=== PATIENT | female | born 1940 | race Caucasian/White ===

== ENCOUNTER → 2019-02-04 | Outpatient (CLI) | payer MEDICARE ==
--- NOTE | 2019-02-05 23:07 | Diagnostic Imaging Report ---
Parathyroid Scan with SPECT Reason for exam: 78 F with hyperparathyroidism (E21.0) Radiopharmaceutical: Tc-99m sestamibi 27 mCi After intravenous administration of the radiopharmaceutical, immediate and 2-hour planar images of the neck and upper chest were obtained. Tomographic images of the neck and upper chest were obtained following the initial planar images. Focal increased tracer activity is seen in the upper pole of the left thyroid lobe on the initial planar images. This focus is identified immediately posterior to the upper pole of the left thyroid lobe on the tomographic images. On the delayed planar images, tracer in the thyroid washes out nearly completely but the focal accumulation of tracer at the upper pole of the left thyroid lobe persists. No other focal abnormalities are identified. Impression: Single enlarged hypermetabolic parathyroid gland is identified immediately posterior to the upper pole of the left thyroid lobe. Signed by: Dr. Delmis Alamo M.D. on 02/05/2019 11:04 PM
== END ==
LOC: NM 13:02
PROVIDERS: ATTEND Internal Medicine Medical Oncology
DX: E21.5 Disorder of parathyroid gland, unspecified (principal)
CPT/HCPCS: 78071; A9500

== ENCOUNTER 2019-02-22 18:42 | Inpatient (IN) | payer MEDICARE ==
[~2019-02-22] VITALS: Ht 154.9 cm; Wt 90.0 kg
--- OUTSIDE RECORDS SUMMARY | 2019-02-22 18:44 | XMS REPORT ---
[facility] Address Unknown Phone Unavailable Care Team Providers Care Wool Mixer Name Role Phone ANTON BERRY Unavailable Unavailable Payers Payer Name Policy Type Policy Number Effective Date Expiration Date Problems This patient has no known problems. Allergies, Adverse Reactions, Alerts Allergy Name Allergy Type Status Severity Reaction(s) Onset Date Inactive Date Treating Clinician Comments Penicillins DA Active U 2016-06-20 00:00:00 Sulfa (Sulfonamide Antibiotics) DA Active SV 2016-06-20 00:00:00 codeine DA Active U 2016-06-20 00:00:00 ciprofloxacin DA Active SV 2016-06-20 00:00:00 Medications This patient has no known medications. Results Test Description Test Time Test Comments Text Results Atomic Results Result Comments PARATHYROID IMAGING W SPECT 2019-02-05 22:57:00 [place] [address] Patient Name: TU GUZMAN MR #: [id number] : 1940 Age/Sex: 78/F Req #: [id number] Adm Physician: Ordered by: ANTON BERRY MD Report #: [id number] Location: [place] Room/Bed: Procedure: [id number] NM/PARATHYROID IMAGING W SPECT Exam Date: 02/04/19 Exam Time: 1315 REPORT STATUS: Signed Parathyroid Scan with SPECT Reason for exam: 78 F with hyperparathyroidism (E21.0) Radiopharmaceutical: Tc-99m sestamibi 27 mCi After intravenous administration of the radiopharmaceutical, immediate and 2-hour planar images of the neck and upper chest were obtained. Tomographic images of the neck and upper chest were obtained following the initial planar images. Focal increased tracer activity is seen in the u pper pole of the left thyroid lobe on the initial planar images. This focus is identified immediately posterior to the upper pole of the left thyroid lobe on the tomographic images. On the delayed planar images, tracer in the thyroid washes out nearly completely but the focal accumulation of tracer at the upper pole of the left thyroid lobe persists. No other focal abnormalities are identified. Impression: Single enlarged hypermetabolic parathyroid gland is identified immediately posterior to the upper pole of the left thyroid lobe. Signed by: Dr. Trace Alamo M.D. on 11:04 PM Dictated By: TRACE ALAMO MD 03 Transcribed By: SADIE on 02/05/192303 COPY TO: ANTON BERRY MD
[2019-02-22 20:04] LABS: BASOPHILS % 0.4 % (0.0-1.0); EOSINOPHILS # (AUTO) 0.1 (0.0-0.4); EOSINOPHILS % 2.2 % (0.0-6.0); HEMATOCRIT 35.3 % (34.2-44.1); HEMOGLOBIN 12.2 g/dL (12.0-16.0); LYMPHOCYTES # (AUTO) 0.3 (1.0-3.2); LYMPHOCYTES % 11.6 % (18.0-39.1); MEAN CORPUSCULAR HGB CONC 34.6 g/dL (31-35); MEAN CORPUSCULAR VOLUME 86.9 fL (81-99); MONOCYTES # (AUTO) 0.2 (0.2-0.8); MONOCYTES % 7.9 % (4.4-11.3); NEUTROPHILS # (AUTO) 2.1 (2.1-6.9); NEUTROPHILS % 77.5 % (38.7-80.0); RED BLOOD COUNT 4.06 x10e6/uL (3.6-5.1); RED CELL DISTRIBUTION WIDTH 14.6 % (11.7-14.4)
[2019-02-22 20:05] LABS: PLATELET COUNT 32 x10e3/uL (140-360)
[2019-02-22 20:11] LABS: BLOOD UREA NITROGEN 19 mg/dL (7-26); CARBON DIOXIDE 22 mmol/L (22-29); CHLORIDE 103 mmol/L (98-107); EST GLOMERULAR FILTRATION RATE > 60 ML/MIN (60-); SODIUM 131 mmol/L (136-145)
[2019-02-22 20:12] LABS: ALANINE AMINOTRANSFERASE 14 IU/L (0-55); ALBUMIN/GLOBULIN RATIO 0.8 (0.8-2.0); ALKALINE PHOSPHATASE 117 IU/L (40-150); BUN/CREATININE RATIO 24 (6-25); CALCIUM 11.1 mg/dL (8.4-10.2); GLUCOSE 114 mg/dL (74-118)
[2019-02-22] MEDS ORDERED: VANCOMYCIN 1GM/NS 250 ML 250 ML IV SCH (20:30)
[2019-02-22] MEDS ORDERED: MORPHINE SULFATE 2 MG/ML SYR 1ML IV PRN (20:30)
[2019-02-22] MEDS: VANCOMYCIN 1GM/NS 250 ML 250 ML IV SCH (20:52)
[2019-02-22] MEDS ORDERED: MORPHINE SULFATE INJ 4 MG/ML INJ 1ML IV PRN (21:00)
[2019-02-22] MEDS ORDERED: PANTOPRAZOLE SO40 MG PO (21:08)
[2019-02-22] MEDS ORDERED: ZOLOFT50 MG PO (21:08)
[2019-02-22] MEDS ORDERED: POTASSIUM CHLO10 ME1 PO (21:08)
[2019-02-22] MEDS ORDERED: POTASSIUM CHLORIDE 20 MEQ TAB CR PO ONE ×3 (21:15→23:30)
[2019-02-22 21:20] VITALS: BP 129/63
[2019-02-22 21:37] VITALS: BP 129/63
[2019-02-23] VITALS (8 sets, daily range): BP systolic 92–122; BP diastolic 44–64
[2019-02-23 05:43] LABS: BASOPHILS % 0.7 % (0.0-1.0); EOSINOPHILS # (AUTO) 0.1 (0.0-0.4); EOSINOPHILS % 3.3 % (0.0-6.0); HEMATOCRIT 29.7 % (34.2-44.1); HEMOGLOBIN 10.4 g/dL (12.0-16.0); LYMPHOCYTES # (AUTO) 0.3 (1.0-3.2); LYMPHOCYTES % 20.9 % (18.0-39.1); MEAN CORPUSCULAR HEMOGLOBIN 30.4 pg (28-32); MEAN CORPUSCULAR VOLUME 86.8 fL (81-99); MONOCYTES # (AUTO) 0.2 (0.2-0.8); MONOCYTES % 10.5 % (4.4-11.3); NEUTROPHILS % 64.6 % (38.7-80.0); RED BLOOD COUNT 3.42 x10e6/uL (3.6-5.1); RED CELL DISTRIBUTION WIDTH 14.7 % (11.7-14.4)
[2019-02-23 05:46] LABS: PLATELET COUNT 26 x10e3/uL (140-360)
[2019-02-23 06:09] LABS: ALANINE AMINOTRANSFERASE 11 IU/L (0-55); ALBUMIN 2.3 g/dL (3.5-5.0); ALBUMIN/GLOBULIN RATIO 0.9 (0.8-2.0); ALKALINE PHOSPHATASE 91 IU/L (40-150); ANION GAP 6.3 mmol/L (8-16); BLOOD UREA NITROGEN 16 mg/dL (7-26); BUN/CREATININE RATIO 23 (6-25); CALCIUM 10.6 mg/dL (8.4-10.2); CARBON DIOXIDE 25 mmol/L (22-29); CHLORIDE 110 mmol/L (98-107); EST GLOMERULAR FILTRATION RATE > 60 ML/MIN (60-); GLUCOSE 105 mg/dL (74-118); POTASSIUM 4.3 mmol/L (3.5-5.1); SODIUM 137 mmol/L (136-145)
[2019-02-23 06:57] LABS: EOSINOPHILS % (MANUAL) 3 % (0-7); LYMPHOCYTES % (MANUAL) 19 % (19-48); MONOCYTES % (MANUAL) 9 % (3.4-9.0); NEUTROPHILS % (MANUAL) 68 % (40-74)
[2019-02-23 06:59] LABS: ANISOCYTOSIS SLIGHT; PLATELET ESTIMATE MARKEDLY DECREASED; PLATELET MORPHOLOGY COMMENT NORMAL; RBC MORPHOLOGY COMMENT ABNORMAL
--- NOTE | 2019-02-23 07:44 | NUR ---
History and Physical cc; left arm cellulitis HPI: 78yoF, PCP , Onc , developed left arm pain/redness/swelling. Pt also found to be pancytopenic and neutropenic; admitted for mgmt. PMH: Left Breast cancer dx 1994, obesity, hypokalemia, cirrhosis, gerd, htn, pancytopenia, GERD, hyperparathyroidism, iron-deficiency anemia PSx: unknown Allergies; see emr fh/Sh; no etoh/illicits/cigs Meds; see MAR ROS; no f/c/s/N/V/D/CHANDLER/vision changes/back pain/hearing changes v/s: rev'd PE tired appearing anicteric ns1s2 mod bs soft nt nd LEFT ARM EDEMATOUS/WARM/TENDER/ERYTHEMATOUS MACULAR RASH a&ox3; green flat affect labs/meds; revd A/P: 78yoF Pancytopenia left arm cellulitis Hyponatremia Hypokalemia Hypercalcemia with hx Hyperparathyroidism hx left Breast cancer Obesity BMI 39 GERD PLAN Iv abx; neutropenic precautions; add IV cefepime IVF replace lytes; Calcium is improving; has hyperparathyroidism, consider cinacalcet. SCD; ppi Sandip Bose MD, PhD.
[2019-02-23] MEDS ORDERED: SERTRALINE HCL 50 MG TAB PO PRN (07:45)
[2019-02-23] MEDS ORDERED: SENNOSIDES 8.6 MG TAB PO PRN (07:45)
[2019-02-23] MEDS ORDERED: ONDANSETRON HCL INJ 2MG/ML 2ML 2 MG/ML VIAL IV PRN (07:45)
[2019-02-23] MEDS: SODIUM CHLORIDE 0.9% 1000ML 1,000 ML IV SCH (09:55)
[2019-02-23] MEDS: POTASSIUM CHLORIDE 10MEQ EA PO SCH (09:55)
[2019-02-23] MEDS: VANCOMYCIN 1GM/NS 250 ML 250 ML IV SCH ×2 (09:55→20:29)
[2019-02-23] MEDS: PANTOPRAZOLE SOD 40 MG TABEC PO SCH (09:55)
[2019-02-23] MEDS: CEFEPIME 1GM/NS 0.9% 50 ML 50 ML IV SCH (12:00)
--- NOTE | 2019-02-23 14:03 | NUR ---
CASE MANAGEMENT ASSESSMENT Sports Book Server to bedside to discuss plan of care with patient/family. CM/SW role and care transitions discussed. Anticipated discharge plan discussed along with duration of care. CM/SW discussed patients right to make decisions in care. CM/SW work hours given. Patient lives: with Sam Admit/Transfer: thru ED Hospital/ER visits since last admit: none POA/Emergency contact: daughter Joanna Braun [phone] Current/Previous Home Health: none PCP/Follow-up Care: Dr. Bang Goyal. CM advised pt to follow up with MD within 5 days of discharge. Pt stated the office is good at getting her in fast, she will make a follow up appointment once she discharges. Current/Previous DME: none Medications (referring to index hospitalization or the first time you were in the hospital) a. Were changes made in your medications when you were in the hospital on [date of index hospitalization]? n/a b. Did you understand the changes? n/a c. Were you able to obtain your new medications right away? n/a d. Were you able to take your medications like the doctor wanted you to? n/a e. Did the hospital give you an accurate, easy to understand list of medications when you left? n/a Scale of 1-10 how comfortable does patient feel with disease management in outpatient settin Other Services: none Employment Status: retired Areas of Concerns: pt stated that she has been falling a lot at home due to weakness in legs; cellulitis in left arm Referral Needs: needs RW; possible need for home health for PT Education Needs: safety; cellulitis, medical management IMM/PINTO given and signed (if applicable): not at this time Goal for discharge: home CM/SW left business card at the bedside with contact information. Name and number was also written on the patients whiteboard. Patient verbalized understanding of discussion. CM will follow-up with ongoing discharge and transition of care needs.
--- NOTE | 2019-02-23 14:15 | NUR ---
Nutrition Screen Note RD Recommendation for Physician: - Rec adding neutropenic to cardiac diet as medically appropriate Plan of Care: RD following, monitoring for tolerance and adequacy Nutrition reason for involvement: Nutrition Risk Trigger - MST Primary Diagnose(s): cellulitis PMH: No H&P in chart Ht: 61in Wt: 206.5lb BMI: 39kg/m2 IBW: 105lb RD Assessment: (02/23) Chart reviewed. Labs and meds reviewed. 78yo F, who was admitted for cellulitis. Currently on neutropenic precaution with WBC at 1.53. Visited pt in the room. Pt reported eating well prior and during hospital stay. Pt has had 70lbs of intentional weight loss with healthy lifestyle changes within the last year. No GI complains noted during my visit. Pt denied any chewing or swallowing difficulty. Diet office is aware of neutropenic precaution. Will continue to monitor and follow. Current Diet: cardiac diet Malnutrition Evaluation (02/23) The patient does not meet criteria for a specified degree of malnutrition at this time. Will re-evaluate at follow-up as appropriate. Diet Education Needs Assessment: Diet education indicated, discussed the need for neutropenic diet. Pt was agreeable with plan. Nutrition Care Level: low Signed: Paula Patel, MS, RD, LD
--- NOTE | 2019-02-23 17:50 | NUR ---
WOUND CARE CONSULTATION - INITIAL EVALUATION Patient admitted from home to ER for redness and discomfort of right arm. DX: Cellulitis of Right Arm HX: Frequent falls becoming more frequent lately, Left Breast Ca, Intermittent Lymphedema. LABS: WBC1.53 HGB10.4 HCT29.7 PLT26 NEUT64.6 KAR339 ALB2.3 Patient VISIT: Ron Score [address]. Supervised OOB activity ( High Risk For Falls) Conservative PUP active No Pressure Ulcers Identified during visit. WOUND CARE CONSULTED FOR EVALUATION OF ULCER TO RIGHT KNEE IMPRESSION: Right Knee - Abrasion RECOMMENDATION: Right Knee - Abrasion - Cleanse with NS and 4x4 gauze then pat dry thoroughly - Apply Xeroform Gauze Single Layer and Cover with Telfa/ Gauze and secure with Hypafix Tape Daily Thank you for consulting with Wound Care. Addendum: 02/23/19 at 1756 by Vinny Manriquez RN Amended: Links added.
[2019-02-23] MEDS ORDERED: ZOLPIDEM TARTRATE 10 MG TAB PO PRN (21:00)
[2019-02-24] VITALS (7 sets, daily range): BP systolic 87–139; BP diastolic 41–80
[2019-02-24] MEDS: SODIUM CHLORIDE 0.9% 1000ML 1,000 ML IV SCH ×2 (05:08→21:56)
[2019-02-24] MEDS: VANCOMYCIN 1GM/NS 250 ML 250 ML IV SCH ×2 (09:40→21:56)
[2019-02-24] MEDS: PANTOPRAZOLE SOD 40 MG TABEC PO SCH (09:40)
[2019-02-24] MEDS: POTASSIUM CHLORIDE 10MEQ EA PO SCH (09:41)
--- NOTE | 2019-02-24 10:48 | NUR ---
IM- progress note O/N; no events ROS; no f/c/s/N/V/D/CHANDLER/vision changes/back pain/hearing changes v/s: rev'd PE tired appearing anicteric ns1s2 mod bs soft nt nd LEFT ARM EDEMATOUS/WARM/TENDER/ERYTHEMATOUS MACULAR RASH a&ox3; green flat affect labs/meds; revd A/P: 78yoF Pancytopenia left arm cellulitis Hyponatremia Hypokalemia Hypercalcemia with hx Hyperparathyroidism hx left Breast cancer Obesity BMI 39 GERD PLAN Iv abx; neutropenic precautions; add IV cefepime IVF replace lytes; Calcium is improving; has hyperparathyroidism, consider cinacalcet. SCD; ppi 4/4 GPCC in 1 blood cx? cont vanco/cefepime; check labs; left arm improving; Sandip Bose MD, PhD.
[2019-02-24 11:22] LABS: BASOPHILS % 0.9 % (0.0-1.0); EOSINOPHILS # (AUTO) 0.1 (0.0-0.4); EOSINOPHILS % 5.1 % (0.0-6.0); HEMOGLOBIN 10.3 g/dL (12.0-16.0); LYMPHOCYTES # (AUTO) 0.4 (1.0-3.2); LYMPHOCYTES % 32.5 % (18.0-39.1); MEAN CORPUSCULAR HEMOGLOBIN 30.5 pg (28-32); MEAN CORPUSCULAR HGB CONC 33.2 g/dL (31-35); MEAN CORPUSCULAR VOLUME 91.7 fL (81-99); MONOCYTES # (AUTO) 0.2 (0.2-0.8); MONOCYTES % 14.5 % (4.4-11.3); NEUTROPHILS # (AUTO) 0.6 (2.1-6.9); RED BLOOD COUNT 3.38 x10e6/uL (3.6-5.1); RED CELL DISTRIBUTION WIDTH 15.4 % (11.7-14.4)
[2019-02-24] MEDS: CEFEPIME 1GM/NS 0.9% 50 ML 50 ML IV SCH (11:30)
[2019-02-24 11:32] LABS: PLATELET COUNT 30 x10e3/uL (140-360)
[2019-02-24 11:36] LABS: ANION GAP 7.2 mmol/L (8-16); BLOOD UREA NITROGEN 12 mg/dL (7-26); BUN/CREATININE RATIO 17 (6-25); CALCIUM 10.4 mg/dL (8.4-10.2); CARBON DIOXIDE 22 mmol/L (22-29); CHLORIDE 112 mmol/L (98-107); EST GLOMERULAR FILTRATION RATE > 60 ML/MIN (60-); GLUCOSE 80 mg/dL (74-118); POTASSIUM 4.2 mmol/L (3.5-5.1); SODIUM 137 mmol/L (136-145)
--- NOTE | 2019-02-24 13:02 | NUR ---
PT GIVEN PHONG SIGNED GREEN SHEET STAPLED TO FACESHEET AND ORDER AND LEFT ON CHART FOR MD SIGNATURE.
--- NOTE | 2019-02-24 13:33 | NUR ---
Notified Dr. Bose regarding critical labs. Awaiting call back.
[2019-02-24 13:52] LABS: LYMPHOCYTES % (MANUAL) 30 % (19-48); MONOCYTES % (MANUAL) 17 % (3.4-9.0); NEUTROPHILS % (MANUAL) 53 % (40-74)
[2019-02-24 13:53] LABS: ANISOCYTOSIS SLIGHT; HYPOCHROMASIA SLIGHT
[2019-02-24 13:54] LABS: RBC MORPHOLOGY COMMENT NORMAL
[2019-02-24 13:55] LABS: PLATELET ESTIMATE MODERATELY DECREASED; PLATELET MORPHOLOGY COMMENT NORMAL
--- NOTE | 2019-02-24 21:52 | NUR ---
NOTIFIED DR LILLIANA Barajas. ORDER TO CONTINUE TO GIVE VANCOMYCIN
[2019-02-25] VITALS (8 sets, daily range): BP systolic 106–129; BP diastolic 47–72
[2019-02-25] MEDS ORDERED: FILGRASTIM 300 MCG/ML VIAL SC SCH (05:00)
--- NOTE | 2019-02-25 07:15 | NUR ---
RCD PT AT BED PT IS ALERT AND ORIENTED PT RESTING ON BED NO SIGNS OF ANY DISTRESS NOTED IV PATENT BED LOW AND LOCKED CALL LIGHT IN REACH
[2019-02-25] MEDS: PANTOPRAZOLE SOD 40 MG TABEC PO SCH (07:30)
[2019-02-25] MEDS: VANCOMYCIN 1GM/NS 250 ML 250 ML IV SCH ×2 (09:00→20:48)
[2019-02-25] MEDS: POTASSIUM CHLORIDE 10MEQ EA PO SCH (09:00)
[2019-02-25] MEDS: CEFEPIME 1GM/NS 0.9% 50 ML 50 ML IV SCH (09:38)
[2019-02-25] MEDS ORDERED: FILGRASTIM 480 MCG/0.8 ML SYRINGE SQ SCH (13:45)
[2019-02-25] MEDS: FILGRASTIM 480 MCG/0.8 ML SYRINGE SQ SCH (14:40)
--- NOTE | 2019-02-25 15:30 | NUR ---
PAGED AND LEFT THE MESSAGE REGARDING CONSULTATION
--- NOTE | 2019-02-25 17:41 | NUR ---
IM- progress note O/N; no events ROS; no f/c/s/N/V/D/CHANDLER/vision changes/back pain/hearing changes v/s: rev'd PE tired appearing anicteric ns1s2 mod bs soft nt nd LEFT ARM EDEMATOUS/WARM/TENDER/ERYTHEMATOUS MACULAR RASH a&ox3; green flat affect labs/meds; revd A/P: 78yoF Pancytopenia left arm cellulitis Hyponatremia Hypokalemia Hypercalcemia with hx Hyperparathyroidism hx left Breast cancer Obesity BMI 39 GERD PLAN Iv abx; neutropenic precautions; add IV cefepime IVF replace lytes; Calcium is improving; has hyperparathyroidism, consider cinacalcet. SCD; ppi 4/4 GPCC in 1 blood cx? cont vanco/cefepime; check labs; left arm improving; 4/5 s/p neupogen; check labs Sandip Bose MD, PhD.
--- NOTE | 2019-02-25 18:51 | NUR ---
PT RESTING ON BED BED BED SIDE REPORT GIVEN TO ONCOMING NURSE
[2019-02-25 18:53] LABS: BASOPHILS % 0.4 % (0.0-1.0); EOSINOPHILS # (AUTO) 0.1 (0.0-0.4); EOSINOPHILS % 1.9 % (0.0-6.0); HEMATOCRIT 32.1 % (34.2-44.1); HEMOGLOBIN 10.9 g/dL (12.0-16.0); LYMPHOCYTES # (AUTO) 0.4 (1.0-3.2); LYMPHOCYTES % 14.2 % (18.0-39.1); MEAN CORPUSCULAR HEMOGLOBIN 30.5 pg (28-32); MEAN CORPUSCULAR VOLUME 89.9 fL (81-99); MONOCYTES # (AUTO) 0.2 (0.2-0.8); MONOCYTES % 7.3 % (4.4-11.3); NEUTROPHILS % 75.8 % (38.7-80.0); RED BLOOD COUNT 3.57 x10e6/uL (3.6-5.1); RED CELL DISTRIBUTION WIDTH 14.7 % (11.7-14.4)
[2019-02-25 19:11] LABS: ANION GAP 6.9 mmol/L (8-16); BLOOD UREA NITROGEN 9 mg/dL (7-26); BUN/CREATININE RATIO 13 (6-25); CALCIUM 10.2 mg/dL (8.4-10.2); CARBON DIOXIDE 22 mmol/L (22-29); CHLORIDE 112 mmol/L (98-107); CREATININE, SERUM 0.69 mg/dL (0.57-1.11); EST GLOMERULAR FILTRATION RATE > 60 ML/MIN (60-); GLUCOSE 84 mg/dL (74-118); POTASSIUM 3.9 mmol/L (3.5-5.1); SODIUM 137 mmol/L (136-145)
[2019-02-25 19:44] LABS: PLATELET COUNT 36 x10e3/uL (140-360)
[2019-02-25] MEDS: ACETAMINOPHEN 325 MG TAB PO PRN (23:06)
[2019-02-26] VITALS (8 sets, daily range): BP systolic 118–149; BP diastolic 51–81
[2019-02-26] MEDS: SODIUM CHLORIDE 0.9% 1000ML 1,000 ML IV SCH ×2 (04:42→15:45)
[2019-02-26] MEDS: PANTOPRAZOLE SOD 40 MG TABEC PO SCH (07:30)
[2019-02-26] MEDS: ACETAMINOPHEN 325 MG TAB PO PRN ×2 (08:23→20:30)
[2019-02-26] MEDS: POTASSIUM CHLORIDE 10MEQ EA PO SCH (09:00)
[2019-02-26] MEDS: FILGRASTIM 480 MCG/0.8 ML SYRINGE SQ SCH (09:00)
--- NOTE | 2019-02-26 09:43 | NUR ---
PAGED AND NOTIFIED RANDELL SERVIN TO DR TIJERINA GOT NEW ORDERS
[2019-02-26] MEDS: CEFEPIME 1GM/NS 0.9% 50 ML 50 ML IV SCH (09:46)
[2019-02-26] MEDS: VANCOMYCIN 750MG/NS 150ML IVPB 150 ML IV SCH ×2 (10:00→22:00)
--- NOTE | 2019-02-26 10:17 | NUR ---
IM- progress note O/N; no events ROS; no f/c/s/N/V/D/CHANDLER/vision changes/back pain/hearing changes v/s: rev'd PE tired appearing anicteric ns1s2 mod bs soft nt nd LEFT ARM EDEMATOUS/WARM/TENDER/ERYTHEMATOUS MACULAR RASH a&ox3; green flat affect labs/meds; revd A/P: 78yoF Pancytopenia left arm cellulitis Hyponatremia Hypokalemia Hypercalcemia with hx Hyperparathyroidism hx left Breast cancer Obesity BMI 39 GERD PLAN Iv abx; neutropenic precautions; add IV cefepime IVF replace lytes; Calcium is improving; has hyperparathyroidism, consider cinacalcet. SCD; ppi 4/ GPCC in 1 blood cx? cont vanco/cefepime; check labs; left arm improving; 4/5 s/p neupogen; check labs 4/6 Strep viridans bacteremia- cont abx; recheck blood cx; reduce vanco; check labs; Sandip Bose MD, PhD.
[2019-02-26 10:39] LABS: ANION GAP 11.3 mmol/L (8-16); BLOOD UREA NITROGEN 9 mg/dL (7-26); BUN/CREATININE RATIO 13 (6-25); CALCIUM 10.4 mg/dL (8.4-10.2); CARBON DIOXIDE 20 mmol/L (22-29); CHLORIDE 112 mmol/L (98-107); CREATININE, SERUM 0.68 mg/dL (0.57-1.11); EST GLOMERULAR FILTRATION RATE > 60 ML/MIN (60-); GLUCOSE 61 mg/dL (74-118); POTASSIUM 4.3 mmol/L (3.5-5.1); SODIUM 139 mmol/L (136-145)
[2019-02-26 10:41] LABS: BASOPHILS % 0.6 % (0.0-1.0); EOSINOPHILS # (AUTO) 0.1 (0.0-0.4); EOSINOPHILS % 1.1 % (0.0-6.0); HEMATOCRIT 33.1 % (34.2-44.1); HEMOGLOBIN 10.8 g/dL (12.0-16.0); LYMPHOCYTES # (AUTO) 0.6 (1.0-3.2); LYMPHOCYTES % 10.7 % (18.0-39.1); MEAN CORPUSCULAR HEMOGLOBIN 30.2 pg (28-32); MEAN CORPUSCULAR HGB CONC 32.6 g/dL (31-35); MEAN CORPUSCULAR VOLUME 92.5 fL (81-99); MONOCYTES # (AUTO) 0.4 (0.2-0.8); MONOCYTES % 6.6 % (4.4-11.3); NEUTROPHILS # (AUTO) 3.9 (2.1-6.9); NEUTROPHILS % 72.5 % (38.7-80.0); RED BLOOD COUNT 3.58 x10e6/uL (3.6-5.1)
[2019-02-26 10:44] LABS: PLATELET COUNT 33 x10e3/uL (140-360)
--- NOTE | 2019-02-26 18:49 | NUR ---
PT RESTING ON BED BED BED SIDE REPORT GIVEN TO ONCOMING NURSE
[2019-02-27] VITALS (8 sets, daily range): BP systolic 111–158; BP diastolic 50–83
[2019-02-27] MEDS: SODIUM CHLORIDE 0.9% 1000ML 1,000 ML IV SCH (00:17)
[2019-02-27] MEDS: PANTOPRAZOLE SOD 40 MG TABEC PO SCH (07:30)
[2019-02-27] MEDS: POTASSIUM CHLORIDE 10MEQ EA PO SCH (09:00)
[2019-02-27] MEDS: VANCOMYCIN 750MG/NS 150ML IVPB 150 ML IV SCH ×2 (10:00→21:55)
[2019-02-27] MEDS: CEFEPIME 1GM/NS 0.9% 50 ML 50 ML IV SCH (10:00)
--- NOTE | 2019-02-27 14:00 | NUR ---
DRESSING CHANGED ON RT KNEE
--- NOTE | 2019-02-27 16:16 | NUR ---
Discharge summary; A/P: 78yoF Pancytopenia left arm cellulitis Hyponatremia Hypokalemia Hypercalcemia with hx Hyperparathyroidism hx left Breast cancer Obesity BMI 39 GERD PLAN Iv abx; neutropenic precautions; add IV cefepime IVF replace lytes; Calcium is improving; has hyperparathyroidism, consider cinacalcet. SCD; ppi 02/24 GPCC in 1 blood cx? cont vanco/cefepime; check labs; left arm improving; 02/25 s/p neupogen; check labs 02/26 Strep viridans bacteremia- cont abx; recheck blood cx; reduce vanco; check labs; 02/27 counts improving; f/u repeat blood cx. Sandip Bose MD, PhD.
--- NOTE | 2019-02-27 19:16 | NUR ---
PT RESTING ON BED BED BED SIDE REPORT GIVEN TO ONCOMING NURSE
[2019-02-28 00:07] VITALS: BP 128/52
[2019-02-28 05:38] VITALS: BP 148/67
[2019-02-28 05:53] LABS: BASOPHILS % 0.6 % (0.0-1.0); EOSINOPHILS # (AUTO) 0.1 (0.0-0.4); EOSINOPHILS % 2.7 % (0.0-6.0); HEMATOCRIT 30.7 % (34.2-44.1); HEMOGLOBIN 10.3 g/dL (12.0-16.0); LYMPHOCYTES # (AUTO) 0.5 (1.0-3.2); LYMPHOCYTES % 14.8 % (18.0-39.1); MEAN CORPUSCULAR HEMOGLOBIN 30.2 pg (28-32); MEAN CORPUSCULAR HGB CONC 33.6 g/dL (31-35); MONOCYTES # (AUTO) 0.2 (0.2-0.8); MONOCYTES % 5.3 % (4.4-11.3); NEUTROPHILS # (AUTO) 2.5 (2.1-6.9); NEUTROPHILS % 75.1 % (38.7-80.0); RED BLOOD COUNT 3.41 x10e6/uL (3.6-5.1); RED CELL DISTRIBUTION WIDTH 15.6 % (11.7-14.4)
[2019-02-28 06:20] LABS: PLATELET COUNT 40 x10e3/uL (140-360)
[2019-02-28] MEDS ORDERED: VIBRAMYCIN100 MG PEG (07:32)
--- NOTE | 2019-02-28 07:35 | NUR ---
ADDENDUM to d/c summary: d/c home f/u pcp 1 week and 2 weeks stable d/c>35mins
--- NOTE | 2019-02-28 07:36 | NUR ---
IM- progress note DOS02/27/19 at 2pm O/N; no events ROS; no f/c/s/N/V/D/CHANDLER/vision changes/back pain/hearing changes v/s: rev'd PE tired appearing anicteric ns1s2 mod bs soft nt nd LEFT ARM EDEMATOUS/WARM/TENDER/ERYTHEMATOUS MACULAR RASH a&ox3; green flat affect labs/meds; revd A/P: 78yoF Pancytopenia left arm cellulitis Hyponatremia Hypokalemia Hypercalcemia with hx Hyperparathyroidism hx left Breast cancer Obesity BMI 39 GERD PLAN Iv abx; neutropenic precautions; add IV cefepime IVF replace lytes; Calcium is improving; has hyperparathyroidism, consider cinacalcet. SCD; ppi 02/24 GPCC in 1 blood cx? cont vanco/cefepime; check labs; left arm improving; 02/25 s/p neupogen; check labs 02/26 Strep viridans bacteremia- cont abx; recheck blood cx; reduce vanco; check labs; 02/27/19 doing better after neupogen; repeat blood cx negative to date Sandip Bose MD, PhD.
[2019-02-28 08:00] VITALS: BP 148/67
[2019-02-28 08:03] VITALS: BP 123/52
[2019-02-28] MEDS: POTASSIUM CHLORIDE 10MEQ EA PO SCH (09:26)
[2019-02-28] MEDS: CEFEPIME 1GM/NS 0.9% 50 ML 50 ML IV SCH (09:26)
[2019-02-28] MEDS: PANTOPRAZOLE SOD 40 MG TABEC PO SCH (09:26)
--- NOTE | 2019-02-28 09:39 | NUR ---
Attempted to call Dr. Pelaez to see if patient can be discharged home. No answer at this time. Will try again later.
--- NOTE | 2019-02-28 09:49 | NUR ---
Dr. Bose ordered for patient to received now, one time PO dose of Doxycycline and monitor patient for 2 hours after she takes the medication, to observe for any reaction. Explained to the patient, she verbalized understanding.
--- NOTE | 2019-02-28 10:15 | NUR ---
Dr. Dominique is here making rounds. He spoke with the patient and said that is OK for her to be discharged from his standpoint and needs to f/u with appointment in the office.
[2019-02-28] MEDS ORDERED: DOXYCYCLINE HYCLATE TABLET 100 MG TAB PO NR (10:30)
[2019-02-28 12:17] VITALS: BP 162/87
[2019-02-28] MEDS ORDERED: ONDANSETRON HCL 4 MG ORAL DISINTEGRATING TAB PO PRN (12:30)
--- NOTE | 2019-02-28 12:30 | NUR ---
Discharge instructions and prescription given to the patient, she verbalized understanding. IV to the right shoulder was removed with tip intact. Patient had no reaction to the Doxycycline that was given earlier.
--- NOTE | 2019-02-28 12:57 | NUR ---
Patient left the floor , she is discharged home.
--- NOTE | 2019-02-28 14:51 | Consultation ---
DATE OF CONSULTATION: 02/25/2019 HISTORY OF PRESENT ILLNESS: Lena Bernstein is a 78-year-old white female, who was seen on 02/22/2019 complaining of cellulitis of the left upper extremity. The patient had chills two nights back. The patient also claimed that she had fallen two nights ago causing abrasion to the right knee, reported that she had to spend the night on the floor because her was unable to help her up. Subsequently seen, the patient was found to have cellulitis, subsequently was suggested admission. Subsequently, I had called the emergency room physician, Dr. Sharma for admission under my service as [facility] allows me to be the attending on my cancer patients. Subsequently, the patient was admitted. I was consulted on 02/25. PAST MEDICAL HISTORY: History of cirrhosis of liver, history of hypertension, history of left breast cancer status post lumpectomy and radiation therapy in 1994. The patient was hospitalized in December of 2016 for left arm cellulitis and the patient is known to have lymphedema of the left upper extremity after breast lumpectomy. SOCIAL HISTORY: Noncontributory. FAMILY HISTORY: Noncontributory. ALLERGIES: REPORTED NONE. MEDICATIONS: At this time: 1. Lasix. 2. Protonix. 3. Vitamin D3. 4. Potassium. REVIEW OF SYSTEMS: HEENT: Normal. CARDIAC: Normal. RESPIRATORY: Normal. GI: Cirrhosis of liver. : Normal. MUSCULOSKELETAL: Lymphedema of the left upper extremity. NEUROENDOCRINE: Essentially normal. PHYSICAL EXAMINATION: GENERAL: Large built female, no palpable adenopathy. HEART: Within normal limits. LUNGS: Clear. BREASTS: Left mastectomy scar. ABDOMEN: Obese. No ascites felt. RECTAL AND VAGINAL: Deferred. CENTRAL NERVOUS SYSTEM: Essentially normal. EXTREMITIES: Cellulitis of the left upper extremity. IMPRESSION: 1. Cellulitis of left upper extremity. 2. Neutropenia. 3. Anemia. 4. Thrombocytopenia. 5. Left breast cancer in clinical complete remission. 6. Lymphedema. 7. Cirrhosis of the liver. 8. Morbid obesity. 9. Essential hypertension. 10. Hypercalcemia. 11. Primary hyperparathyroidism. PLAN: Plan is to give her aggressive antibiotics after appropriate cultures. The primary hyperparathyroidism will be treated with Aredia. Hopefully, one of the days, she will have exploration of the neck. My concern is this severe thrombocytopenia which she has. MD JANET Brothers/OBI /[id number] cc: MD Bnag Benson
== END 2019-02-28 12:59 | disposition home or self-care (01) | DRG 603 ==
LOC: ER 18:42 → ERHOLD 20:34 → MED/SURG2 21:16
PROVIDERS: ADMIT Internal Medicine; ATTEND Internal Medicine
DX: L03.114 Cellulitis of left upper limb (principal); D61.818 Other pancytopenia; E87.1 Hypo-osmolality and hyponatremia; E87.6 Hypokalemia; K21.9 Gastro-esophageal reflux disease without esophagitis; D69.6 Thrombocytopenia, unspecified; K74.60 Unspecified cirrhosis of liver; E66.9 Obesity, unspecified; Z68.37 Body mass index [BMI] 37.0-37.9, adult; Z85.3 Personal history of malignant neoplasm of breast; I10 Essential (primary) hypertension; E66.01 Morbid (severe) obesity due to excess calories; E21.0 Primary hyperparathyroidism
CPT/HCPCS: 36415; 80048; 80053; 80202; 82948; 83605; 85025; 87040; 87071; 87205; 97139; 99284; J0692; J1442; J3370; J7030